=== PATIENT | male | born 1970 | race Caucasian/White ===

== ENCOUNTER 2016-10-13 07:32 | Emergency (ER) | payer BC ==
[2016-10-13 07:43] VITALS: BP 114/80
--- NOTE | 2016-10-13 08:11 | UC ---
Lower Extremity/Ankle HPI - HPI Summary HPI Summary: The patient comes in today for: 1. Pain and swelling of the left MP joint of the left foot. Onset: Last night. Palliative/provocative: Walking and pressure on the MP joint of left big toe. Quality: Ache Region: MP joint of the left big toe. Severity: 8/10 Time: Constant. Associated symptoms: He has had gout since about 13 years ago. He states that he has not recently been taking his allopurinol. And he had a big steak last night. * - History of Current Complaint Chief Complaint: UCLowerExtremity Stated Complaint: LEFT FOOT PAIN Time Seen by Provider: 10/13/16 08:03 Hx Obtained From: Patient - Allergies/Home Medications Allergies/Adverse Reactions: Allergies Allergy/AdvReac Type Severity Reaction Status Date / Time No Known Allergies Allergy Verified 10/13/16 07:43 PMH/Surg Hx/FS Hx/Imm Hx Previously Healthy: No - Gout Endocrine History Of: Denies: Diabetes, Thyroid Disease, Hyperthyroidism, Hypothyroidism, Dyslipidemia Cardiovascular History Of: Denies: Cardiac Disorders, Hypertension, Pacemaker/ICD, Myocardial Infarction , Congestive Heart Failure, Atrial Fibrillation, Deep Vein Thrombosis, Bleeding Disorders Respiratory History Of: Denies: COPD, Asthma, Bronchitis, Pneumonia, Pulmonary Embolism GI/ History Of: Reports: Renal Disease - He sees a regional property manager for "kidney disease" (high Cr), but doing well. Denies: Gastroesophageal Reflux, Ulcer, Gastrointestinal Bleed, Gall Bladder Disease, Kidney Stones, Diverticulitis, Urosepsis Neurological History Of: Denies: TIA, CVA, Dementia, Seizures, Migraine Psychological History Of: Denies: Anxiety, Depression, Bipolar Disorder, Schizophrenia, Post Traumatic Stress Disorder Cancer History Of: Denies: Lung Cancer, Colorectal Cancer, Breast Cancer, Prostate Cancer, Cervical Cancer Other History Of: Negative For: HIV, Hepatitis B, Hepatitis C, Anticoagulant Therapy - Surgical History Surgical History: Yes Surgery Procedure, Year, and Place: ACL surgery left knee, bone spur removed from back - Family History Known Family History: Positive: Hypertension, Renal Disease - daughter with kidney stones., Other - gout in father and brother Negative: Cardiac Disease - Social History Occupation: Employed Full-time Alcohol Use: Rare Substance Use Type: None Smoking Status (MU): Never Smoked Tobacco Type: Smokeless Tobacco Amount Used/How Often: 1 CAN q 3-4 days Length of Time of Smoking/Using Tobacco: 22 Years Have You Smoked in the Last Year: Yes When Did the Patient Quit Smoking/Using Tobacco: ~08/24/15 Review of Systems Constitutional: Negative Skin: Negative Eyes: Negative ENT: Negative Respiratory: Negative Cardiovascular: Negative Gastrointestinal: Negative Genitourinary: Negative All Other Systems Reviewed And Are Negative: Yes Physical Exam Triage Information Reviewed: Yes Appearance: Well-Appearing, No Pain Distress, Well-Nourished Vital Signs: Initial Vital Signs Temp 97.3 F 10/13/16 07:36 Pulse 78 10/13/16 07:36 Resp 18 10/13/16 07:36 BP 114/80 10/13/16 07:36 Vital Signs Reviewed: Yes Eyes: Positive: Conjunctiva Clear. Negative: Discharge ENT: Positive: Hearing grossly normal, Pharyngeal erythema. Negative: TM bulging, TM red, Tonsillar swelling, Tonsillar exudate Dental: Negative: Gross Decay/Caries @, Dental Fracture @ Neck: Positive: Supple, Nontender, No Lymphadenopathy. Negative: Nuchal Rigidity Respiratory: Positive: Lungs clear, No respiratory distress, No accessory muscle use. Negative: Rhonchi, Wheezing Cardiovascular: Positive: RRR, No Murmur Abdomen Description: Positive: Nontender, No Organomegaly, Soft. Negative: Distended, Guarding Musculoskeletal: Positive: Strength Intact, ROM Intact, Edema @ - There is mild edema of the MP joint of the first left big toe. The area is tender to touch. Neurological: Positive: Alert, Muscle Tone Normal Psychological: Negative: Age Appropriate Behavior, Consolable Skin: Negative: rashes, breakdown Lower Extremity Course/Dx - Course Course Of Treatment: Patient told of his treatment options. He requests what he had successfully as treatment the last time (80 mg Solumedrol IM and colchicine). He is requested narcotic medication to cover him until the gout medicine kicks in. - Differential Dx/Diagnosis Differential Diagnosis/HQI/PQRI: Gout, Sprain, Strain Provider Diagnoses: Gout. Discharge - Discharge Plan Condition: Stable Disposition: HOME Patient Education Materials: Gout (ED) Referrals: Kaden Ford [Primary Care Provider] - If Needed (Please see your primary care provider as needed. If you have any problems, be seen again at that time.)
[2016-10-13] MEDS ORDERED: methylPREDNISolone SOD 40 MG* 1 ML VIAL IM ONE (08:20)
[2016-10-13] MEDS ORDERED: methylPREDNISolone 125 MG* 2 ML VIAL IM ONE (08:23)
== END 2016-10-13 08:52 | disposition home or self-care (01) ==
LOC: UCCORT 07:32
DX: M10.072 Idiopathic gout, left ankle and foot (principal); N28.9 Disorder of kidney and ureter, unspecified; Z87.891 Personal history of nicotine dependence
CPT/HCPCS: 96372; 99212; G0463; J2930

== ENCOUNTER 2017-01-21 17:43 | Emergency (ER) | payer BC ==
[2017-01-21 18:00] VITALS: BP 117/76
--- NOTE | 2017-01-21 18:57 | RAD ---
Indication: Softball injury. 4 views of the right hand demonstrates a fracture of the fifth metacarpal head with slight volar angulation. The remainder of the metacarpals are unremarkable. IMPRESSION: Fracture of the fifth metacarpal head with volar angulation.
--- NOTE | 2017-01-21 19:34 | UC ---
Hand/Wrist HPI - HPI Summary HPI Summary: FOUR DAYS AGO RIGHT HAND WAS HIT BY SOFTBALL WHILE PLAYING IN A GAME. SINCE TIME OF INJURY HAS HAD SWELLING AND PAIN IN (5TH METACARPAL ASPECT OF) HAND. NO PREVIOUS INJURY. NO LOSS OF SENSATION. FULL ROM BUT PAIN WITH FLEXION OF FIFTH FINGER. - History Of Current Complaint Chief Complaint: UCUpperExtremity Stated Complaint: RIGHT HAND INJURY Time Seen by Provider: 01/21/17 17:58 Hx Obtained From: Patient Onset/Duration: Sudden Onset, Lasting Days, Still Present Severity Initially: Moderate Severity Currently: Moderate Character Of Pain: Dull, Aching Aggravating Factor(s): Movement, Flexion, Extension Alleviating: Nothing Associated Signs And Symptoms: Positive: Swelling. Negative: Bruising, Numbness /Tingling Related History: Dominant Hand Right - Allergies/Home Medications Allergies/Adverse Reactions: Allergies Allergy/AdvReac Type Severity Reaction Status Date / Time No Known Allergies Allergy Verified 01/21/17 18:00 PMH/Surg Hx/FS Hx/Imm Hx Previously Healthy: Yes Other History Of: Negative For: HIV, Hepatitis B, Hepatitis C, Anticoagulant Therapy - Surgical History Surgical History: Yes Surgery Procedure, Year, and Place: ACL surgery left knee, bone spur removed from back - Family History Known Family History: Positive: Hypertension, Renal Disease - daughter with kidney stones., Other - gout in father and brother Negative: Cardiac Disease - Social History Occupation: Employed Full-time Lives: With Family Alcohol Use: Occasionally Substance Use Type: None Smoking Status (MU): Current Some Day Smoker Type: Smokeless Tobacco Amount Used/How Often: 1 CAN q 3-4 days Length of Time of Smoking/Using Tobacco: 22 Years Have You Smoked in the Last Year: Yes When Did the Patient Quit Smoking/Using Tobacco: ~08/24/15 Review of Systems Constitutional: Negative Skin: Negative Eyes: Negative ENT: Negative Respiratory: Negative Cardiovascular: Negative Gastrointestinal: Negative Genitourinary: Negative Motor: Negative Neurovascular: Negative Musculoskeletal: Arthralgia, Edema, Myalgia Neurological: Negative Psychological: Negative All Other Systems Reviewed And Are Negative: Yes Physical Exam Triage Information Reviewed: Yes Appearance: Well-Appearing, No Pain Distress, Well-Nourished Vital Signs: Initial Vital Signs Temp 98.1 F 01/21/17 17:56 Pulse 87 01/21/17 17:56 Resp 15 01/21/17 17:56 BP 117/76 01/21/17 17:56 Pulse Ox 100 01/21/17 17:56 Vital Signs Reviewed: Yes Eye Exam: Normal ENT Exam: Normal ENT: Positive: Normal ENT inspection, TMs normal Dental Exam: Normal Neck exam: Normal Respiratory Exam: Normal Respiratory: Positive: Chest non-tender, Lungs clear, Normal breath sounds, No respiratory distress, No accessory muscle use Cardiovascular Exam: Normal Cardiovascular: Positive: RRR, No Murmur, Pulses Normal Abdominal Exam: Normal Musculoskeletal: Positive: Strength Intact, ROM Intact, Edema @ - RIGHT HAND Neurological Exam: Normal Psychological Exam: Normal Skin Exam: Normal Procedures - Splinting Hand-Made Type: ASHLEY WRAP KOBAN PROTECTIVE GAUZE Splint: BOXERS SPLINT Pre-Proc Neuro Vasc Exam: normal Post-Proc Neuro Vasc Exam: normal Hand/Wrist Course/Dx - Differential Dx/Diagnosis Differential Diagnosis/HQI/PQRI: Fracture, Sprain, Strain Provider Diagnoses: CLOSED FOUR DAY OLD BOXER FRACTURE OF RIGHT FIFTH METACARPAL WITH VOLAR ANGUALTION Discharge - Discharge Plan Condition: Stable Disposition: HOME Patient Education Materials: Boxer Fracture (ED) Referrals: Joe Wiley MD [Medical Doctor] - Kishore URIOSTEGUI,Kaden Talbot [Primary Care Provider] - Additional Instructions: PHYSICAL THERAPY REFERRAL: You have been prescribed physical therapy. Treatments may include stretching, exercise, application of heat or cold, and other modalities. After an injury, PT can reduce swelling and pain. In recovery, PT is used to restore mobility and strength. Your specific treatment goals are: ___x__ Reduction of Swelling (EGS, US, ice as needed) __x___ Pain Reduction (EGS, US, ice as needed) TENS Pack Fitting and Instruction Wound Hydrotherapy ___x__ Preservation of Mobility ____x_ Yarsani of Mobility ____x_ Strength Yarsani ___x__ Work or Sports Hardening This instruction sheet also serves as your PHYSICAL THERAPY REFERRAL! Please take it with you to the therapist, so he/she will be aware of your diagnosis and treatment plan. You may see the physical therapist of your choice for these treatments, but may wish to check with your insurance to be sure the provider you select is covered. It's important to see the doctor to whom you have been referred for follow up.
== END 2017-01-21 19:32 | disposition home or self-care (01) ==
LOC: UCCORT 17:43
DX: S62.306A Unspecified fracture of fifth metacarpal bone, right hand, initial encounter for closed fracture (principal); W21.07XA Struck by softball, initial encounter; Y93.64 Activity, baseball; Y92.320 Baseball field as the place of occurrence of the external cause; Z72.0 Tobacco use
CPT/HCPCS: 99211; G0463

== ENCOUNTER 2017-09-22 09:03 | Emergency (ER) | payer BC ==
[2017-09-22 11:33] VITALS: BP 123/87
--- NOTE | 2017-09-22 11:36 | UC ---
Lower Extremity/Ankle HPI - HPI Summary HPI Summary: 46 yo gentleman c/o progressive worse foot pain, redness and swelling. Reports that this is c/w his usual hx gout. Follows with benefits analyst, but no longer has pcp. No fever / chills. Ran out of rx allopurinol, colchicine. States that usually he needs a shot of steroids to turn the pain around. Reports that kidneys have been working well, drinking lots of water. - History of Current Complaint Chief Complaint: UCGeneralIllness Stated Complaint: RT FOOT COMP Hx Obtained From: Patient Pain Intensity: 8 - Allergies/Home Medications Allergies/Adverse Reactions: Allergies Allergy/AdvReac Type Severity Reaction Status Date / Time No Known Allergies Allergy Verified 09/22/17 11:28 Home Medications: Home Medications Ibuprofen TAB* [Advil TAB*] 600 mg PO Q6H PRN 09/22/17 [History Confirmed ] PMH/Surg Hx/FS Hx/Imm Hx Previously Healthy: Yes - see hpi Other History Of: Negative For: HIV, Hepatitis B, Hepatitis C, Anticoagulant Therapy - Surgical History Surgical History: Yes Surgery Procedure, Year, and Place: ACL surgery left knee, bone spur removed from back - Family History Known Family History: Positive: Hypertension, Renal Disease - daughter with kidney stones., Other - gout in father and brother Negative: Cardiac Disease - Social History Alcohol Use: Occasionally Substance Use Type: None Smoking Status (MU): Current Some Day Smoker Type: Smokeless Tobacco Amount Used/How Often: 1 CAN q 3-4 days Length of Time of Smoking/Using Tobacco: 22 Years Have You Smoked in the Last Year: Yes When Did the Patient Quit Smoking/Using Tobacco: ~08/24/15 Review of Systems Constitutional: Negative Skin: Other - see hpi Eyes: Negative ENT: Negative Respiratory: Negative Cardiovascular: Negative Gastrointestinal: Negative Genitourinary: Negative Motor: Other - see hpi Musculoskeletal: Arthralgia Neurological: Negative Psychological: Negative Is Patient Immunocompromised?: No All Other Systems Reviewed And Are Negative: Yes Physical Exam Triage Information Reviewed: Yes Appearance: Well-Appearing, Well-Nourished Vital Signs: Initial Vital Signs Temp 98.0 F 09/22/17 11:24 Pulse 68 09/22/17 11:24 Resp 18 09/22/17 11:24 BP 123/87 09/22/17 11:24 Pulse Ox 96 09/22/17 11:24 Eye Exam: Normal - grossly normal ENT Exam: Normal - grossly normal Neck exam: Normal - no c/o pain Respiratory Exam: Normal - no tachypnea, no dyspnea. RR normal. Cardiovascular Exam: Normal - HR normal. Non-diaphoretic. DP/Pt palpable. Abdominal Exam: Normal - no complaints Musculoskeletal Exam: Other - normal except R foot redness, swelling, pain at 1st MTP joint. + tender. CR < 2 sec x 5 digits. Distal sensation present. No prox swelling or pain. Neurological Exam: Normal - groslly nonfocal Psychological Exam: Normal - conversing easily and appropriately Skin Exam: Normal - no visible or reported rash. R foot 1st mtp redness as noted above, c/w gout. Lower Extremity Course/Dx - Course Course Of Treatment: Reviewed coa / tx plan with Mr. Novak. He has not had blood work nor seen pcp in a long time. Reports that they have been watching his kidneys. As such, blood work ordered today. F/u later this month with rheumotologist as scheduled. He will look for a PCP as well. Questions as posed answered to the best of my ability. - Differential Dx/Diagnosis Provider Diagnoses: Arthralgia, c/w acute gout. Discharge - Sign-Out/Discharge Documenting (check all that apply): Discharge/Admit/Transfer - Discharge Plan Condition: Stable Disposition: HOME Prescriptions: Allopurinol TAB* [Zyloprim 300 MG TAB*] 300 mg PO DAILY #30 tab Colchicine* [Colcrys*] 0.6 mg PO DAILY #12 tab Patient Education Materials: Gout (ED) [place] [facility] [place]] No Primary Care Phys,NOPCP [Primary Care Provider] - Additional Instructions: Blood work drawn today: basic metabolic panel "BMP," and Uric acid level. Please follow up with your benefits analyst as scheduled this month. Please follow up with a primary care physician, as soon as you are able. Within one month if possible. Please go to the Emergency Department for worse or new problems in the meantime. - Billing Disposition and Condition Condition: STABLE Disposition: HOME
[2017-09-22] MEDS ORDERED: methylPREDNISolone 125 MG* 2 ML VIAL IM ONE (11:53)
[2017-09-22 19:40] LABS: Uric Acid 9.2 mg/dL (4.4-7.6)
== END 2017-09-22 12:50 | disposition home or self-care (01) ==
LOC: UCCORT 09:03
DX: M25.571 Pain in right ankle and joints of right foot (principal); F17.220 Nicotine dependence, chewing tobacco, uncomplicated
CPT/HCPCS: 36415; 80048; 84550; 96372; 99212; G0463; J2930

== ENCOUNTER 2017-11-14 13:02 | Emergency (ER) | payer BC ==
[2017-11-14 13:23] VITALS: BP 116/78
--- NOTE | 2017-11-14 13:33 | UC ---
Lower Extremity/Ankle HPI - HPI Summary HPI Summary: 47 year old male with foot pain . Here w/ gout flare up in RIGHT big toe since yesterday. Takes allopurinol 300mg daily and ibuprofen prn. Had flare-up 3 months ago and tx w/ colchicine and steroid shot. he had beer a couple days ago and that may flared it up [ End ] - History of Current Complaint Chief Complaint: UCLowerExtremity Stated Complaint: RIGHT FOOT PAIN Time Seen by Provider: 11/14/17 13:29 Hx Obtained From: Patient Onset/Duration: Sudden Onset Severity Initially: Moderate Severity Currently: Severe Pain Intensity: 7 Aggravating Factor(s): Standing Alleviating Factor(s): Rest Able to Bear Weight: Yes - Allergies/Home Medications Allergies/Adverse Reactions: Allergies Allergy/AdvReac Type Severity Reaction Status Date / Time No Known Allergies Allergy Verified 11/14/17 13:16 Home Medications: Home Medications Allopurinol TAB* [Zyloprim 300 MG TAB*] 300 mg DAILY 11/14/17 [History Confirmed 11/14/17] PMH/Surg Hx/FS Hx/Imm Hx Previously Healthy: Yes Respiratory History: Other - gout Other Respiratory History: gout Other History Of: Negative For: HIV, Hepatitis B, Hepatitis C, Anticoagulant Therapy - Surgical History Surgical History: Yes Surgery Procedure, Year, and Place: ACL surgery left knee, bone spur removed from back - Family History Known Family History: Positive: Hypertension, Renal Disease - daughter with kidney stones., Other - gout in father and brother Negative: Cardiac Disease - Social History Occupation: Employed Full-time Alcohol Use: Occasionally Substance Use Type: None Smoking Status (MU): Former Smoker Type: Smokeless Tobacco Amount Used/How Often: 1 CAN q 3-4 days Length of Time of Smoking/Using Tobacco: 22 Years Have You Smoked in the Last Year: Yes When Did the Patient Quit Smoking/Using Tobacco: ~08/24/15 Review of Systems Musculoskeletal: Arthralgia Is Patient Immunocompromised?: No All Other Systems Reviewed And Are Negative: Yes Physical Exam Triage Information Reviewed: Yes Appearance: Well-Appearing, No Pain Distress, Well-Nourished Vital Signs: Initial Vital Signs Temp 97.3 F 11/14/17 13:17 Pulse 68 11/14/17 13:17 Resp 16 11/14/17 13:17 BP 116/78 11/14/17 13:17 Pulse Ox 100 11/14/17 13:17 Vital Signs Reviewed: Yes Eye Exam: Normal Respiratory Exam: Normal Cardiovascular Exam: Normal Musculoskeletal Exam: Normal Musculoskeletal: Positive: Strength Intact, ROM Limited @ - pain and redness with tenderness 1st MTP large toe. no discharge. warm to touch. no streaking . no induration Neurological Exam: Normal Psychological Exam: Normal Skin Exam: Normal Lower Extremity Course/Dx - Course Course Of Treatment: f/u with PCP and rheum and follow proper diet - Differential Dx/Diagnosis Differential Diagnosis/HQI/PQRI: Gout Provider Diagnoses: gout Discharge - Sign-Out/Discharge Documenting (check all that apply): Discharge/Admit/Transfer - Discharge Plan Condition: Good Disposition: HOME Prescriptions: Colchicine [Mitigare] 0.6 mg PO SEE INSTRUCTIONS #9 capsule Patient Education Materials: Gout (ED), Low Purine Diet (ED) Referrals: No Primary Care Phys,NOPCP [Primary Care Provider] - 2 Weeks - Billing Disposition and Condition Condition: GOOD Disposition: Home
[2017-11-14] MEDS ORDERED: methylPREDNISolone 125 MG* 2 ML VIAL IM ONE (13:39)
== END 2017-11-14 13:52 | disposition home or self-care (01) ==
LOC: UCCORT 13:02
DX: M10.9 Gout, unspecified (principal); Z87.891 Personal history of nicotine dependence
CPT/HCPCS: 96372; 99212; G0463; J2930

== ENCOUNTER 2017-12-21 13:27 | Emergency (ER) | payer BC ==
[2017-12-21 14:23] VITALS: BP 123/81
--- NOTE | 2017-12-21 14:30 | UC ---
Lower Extremity/Ankle HPI - HPI Summary HPI Summary: Pt c/o sudden onset of left toe swelling and tenderness. Pthas hx of gout X 15 years, takes allopurinol daily but admits to eatin g"junky diet over the weekend ". Pt woke to sudden onset of left great toe swelling, pain, warmtha nd difficulty with weight bearing. Pt states he has had "flares frequently" and request "shot of steroids and colchicine" Denies injury or trauma - History of Current Complaint Chief Complaint: UCLowerExtremity Stated Complaint: LFT FOOT PAIN Time Seen by Provider: 12/21/17 14:24 Hx Obtained From: Patient Onset/Duration: Sudden Onset, Lasting Hours, Still Present, Worse Since Severity Initially: Moderate Severity Currently: Moderate Pain Intensity: 8 Aggravating Factor(s): Standing, Ambulation Alleviating Factor(s): Nothing Able to Bear Weight: Yes - minimum - Risk Factors Gout Risk Factors: Age Over 40, Male DVT Risk Factors: Negative Septic Arthritis Risk Factor: Negative - Allergies/Home Medications Allergies/Adverse Reactions: Allergies Allergy/AdvReac Type Severity Reaction Status Date / Time No Known Allergies Allergy Verified 12/21/17 14:19 PMH/Surg Hx/FS Hx/Imm Hx Previously Healthy: Yes Other History Of: Negative For: HIV, Hepatitis B, Hepatitis C, Anticoagulant Therapy - Surgical History Surgical History: Yes Surgery Procedure, Year, and Place: ACL surgery left knee, bone spur removed from back - Family History Known Family History: Positive: Hypertension, Renal Disease - daughter with kidney stones., Other - gout in father and brother Negative: Cardiac Disease - Social History Occupation: Employed Full-time Lives: With Family Alcohol Use: Occasionally Substance Use Type: None Smoking Status (MU): Former Smoker Type: Smokeless Tobacco Amount Used/How Often: 1 CAN q 3-4 days Length of Time of Smoking/Using Tobacco: 22 Years Have You Smoked in the Last Year: Yes When Did the Patient Quit Smoking/Using Tobacco: ~08/24/15 Review of Systems Constitutional: Negative Skin: Negative Eyes: Negative ENT: Negative Respiratory: Negative Cardiovascular: Negative Gastrointestinal: Negative Genitourinary: Negative Motor: Decreased ROM - left great toe Neurovascular: Negative Musculoskeletal: Arthralgia, Decreased ROM - left great toe, Edema, Myalgia Neurological: Negative Psychological: Negative Is Patient Immunocompromised?: No All Other Systems Reviewed And Are Negative: Yes Physical Exam Triage Information Reviewed: Yes Appearance: Well-Appearing, Pain Distress Vital Signs: Initial Vital Signs Temp 97.5 F 12/21/17 14:19 Pulse 76 12/21/17 14:19 Resp 16 12/21/17 14:19 BP 123/81 12/21/17 14:19 Pulse Ox 100 12/21/17 14:19 Vital Signs Reviewed: Yes Eye Exam: Normal ENT: Positive: Normal ENT inspection Dental Exam: Normal Neck exam: Normal Respiratory Exam: Normal Cardiovascular Exam: Normal Musculoskeletal: Positive: Strength Limited @ - left great toe, ROM Limited @, Edema @ Neurological Exam: Normal Psychological Exam: Normal Skin Exam: Other - mild erythema left great toe Lower Extremity Course/Dx - Differential Dx/Diagnosis Differential Diagnosis/HQI/PQRI: Gout, Infection Provider Diagnoses: left great toe gout Discharge - Sign-Out/Discharge Documenting (check all that apply): Patient Departure - Discharge Plan Condition: Stable Disposition: HOME Prescriptions: Colchicine* [Colcrys*] 0.6 mg PO DAILY #3 tab Patient Education Materials: Low Purine Diet (ED), Gout (ED) Referrals: No Primary Care Phys,NOPCP [Primary Care Provider] - [facility] [place]] - If Needed Additional Instructions: Per institutional requirements, I have reviewed the chart, however, I was not consulted specifically or made aware of this patient by the above midlevel provider. I did not personally evaluate, interact with , or disposition this patie - Billing Disposition and Condition Condition: STABLE Disposition: Home
[2017-12-21] MEDS ORDERED: methylPREDNISolone 125 MG* 2 ML VIAL IM ONE (14:31)
== END 2017-12-21 15:00 | disposition home or self-care (01) ==
LOC: UCCORT 13:27
DX: M10.9 Gout, unspecified (principal); Z87.891 Personal history of nicotine dependence
CPT/HCPCS: 96372; 99212; G0463; J2930

== ENCOUNTER 2018-03-10 09:06 | Emergency (ER) | payer BC ==
[2018-03-10 10:18] VITALS: BP 128/77
[2018-03-10] MEDS ORDERED: predniSONE TAB* 20 MG PO ONE (10:48)
--- NOTE | 2018-03-10 10:55 | UC ---
Lower Extremity/Ankle HPI - HPI Summary HPI Summary: 47-year-old male with history of gout presents with 2 day history of pain to his right great toe with redness and swelling. States this is very similar to his previous gout flareups. Denies fever, chills, injury, numbness or tingling. - History of Current Complaint Chief Complaint: UCLowerExtremity Stated Complaint: RIGHT FOOT COMPLAINT Time Seen by Provider: 03/10/18 10:33 Hx Obtained From: Patient Onset/Duration: Gradual Onset, Lasting Days - 2 Severity Currently: Moderate Pain Intensity: 7 Aggravating Factor(s): Ambulation Alleviating Factor(s): Nothing Able to Bear Weight: Yes - Allergies/Home Medications Allergies/Adverse Reactions: Allergies Allergy/AdvReac Type Severity Reaction Status Date / Time No Known Allergies Allergy Verified 03/10/18 10:19 Home Medications: Home Medications Ibuprofen TAB* [Motrin TAB* 400 MG] 400 mg PO Q6H PRN 03/10/18 [History Confirmed 03/10/18] PMH/Surg Hx/FS Hx/Imm Hx - Additional Past Medical History Additional PMH: gout Previously Healthy: Yes Other History Of: Negative For: HIV, Hepatitis B, Hepatitis C, Anticoagulant Therapy - Surgical History Surgical History: Yes Surgery Procedure, Year, and Place: ACL surgery left knee, bone spur removed from back - Family History Known Family History: Positive: Hypertension, Renal Disease - daughter with kidney stones., Other - gout in father and brother Negative: Cardiac Disease - Social History Occupation: Employed Full-time Lives: With Family Alcohol Use: Rare Substance Use Type: None Smoking Status (MU): Never Smoked Tobacco Type: Smokeless Tobacco Amount Used/How Often: 1 CAN q 3-4 days Length of Time of Smoking/Using Tobacco: 22 Years Have You Smoked in the Last Year: Yes When Did the Patient Quit Smoking/Using Tobacco: ~08/24/15 Review of Systems Constitutional: Negative Skin: Other - Erythema right great toe Motor: Negative Neurovascular: Negative Musculoskeletal: Other: - See HPI Is Patient Immunocompromised?: No All Other Systems Reviewed And Are Negative: Yes Physical Exam Triage Information Reviewed: Yes Appearance: Well-Appearing, No Pain Distress, Well-Nourished Vital Signs: Initial Vital Signs Temp 97.4 F 03/10/18 10:14 Pulse 74 03/10/18 10:14 Resp 18 03/10/18 10:14 BP 128/77 03/10/18 10:14 Pulse Ox 98 03/10/18 10:14 Respiratory: Positive: Lungs clear, Normal breath sounds Cardiovascular: Positive: RRR, No Murmur Musculoskeletal: Positive: ROM Intact, Other: - Erythema and edema to the MTP of right great toe Neurological: Positive: Alert Skin: Positive: Other - See above Lower Extremity Course/Dx - Course Course Of Treatment: 47-year-old male with a history of gout presents with 2 day history of swelling to the MTP of the right great toe. His exam is consistent with a gout flare. He was given prednisone 60 mg in the clinic and prescribed a tapering dose of prednisone over the next 10 days. He is to follow -up with primary care provider if symptoms persist. - Differential Dx/Diagnosis Provider Diagnoses: Gout right great toe Discharge - Sign-Out/Discharge Documenting (check all that apply): Patient Departure All imaging exams completed and their final reports reviewed: No Studies - Discharge Plan Condition: Stable Disposition: HOME Prescriptions: predniSONE TAB* [Deltasone 10 MG TAB*] 10 mg PO DAILY #30 tab Patient Education Materials: Low Purine Diet (ED), Gout (ED) Referrals: No Primary Care Phys,NOPCP [Primary Care Provider] - Additional Instructions: You're given a dose of prednisone 60 mg in the clinic today for your gout. Starting tomorrow begin a tapering dose of the prednisone. He will take 4 tablets once daily for 3 days, then 3 tablets daily for 3 days, then 2 tablets daily for 3 days, then 1 tablet daily for 3 days, then stop. I have provided you with a I have provided she with information on a low purine diet which can help prevent flareups of gout. Be sure to review this information. Follow-up with your primary care provider if symptoms do not improve. - Billing Disposition and Condition Condition: STABLE Disposition: Home - Attestation Statements Provider Attestation: I was available for consult. This patient was seen by the SUDHAKAR. The patient was not presented to, seen by, or examined by me. -Fawad
== END 2018-03-10 11:09 | disposition home or self-care (01) ==
LOC: UCCORT 09:06
DX: M10.9 Gout, unspecified (principal); Z72.0 Tobacco use; Z79.52 Long term (current) use of systemic steroids
CPT/HCPCS: 99212; G0463; J7512

== ENCOUNTER 2018-09-28 17:12 | Emergency (ER) | payer BC ==
[2018-09-28 18:30] VITALS: BP 135/86
--- NOTE | 2018-09-28 18:43 | ED ---
Throat Pain/Nasal Congestion - HPI Summary HPI Summary: 47 yr old male with the complaint of frontal and maxillary sinus ache for about three weeks. he has had some sneezing, nasal congestion and cough as well. Cough worse at night. - History of Current Complaint Chief Complaint: UCGeneralIllness Time Seen by Provider: 09/28/18 18:31 - Allergies/Home Medications Allergies/Adverse Reactions: Allergies Allergy/AdvReac Type Severity Reaction Status Date / Time No Known Allergies Allergy Verified 09/28/18 18:30 PMH/Surg Hx/FS Hx/Imm Hx Endocrine/Hematology History: Denies: Hx Anticoagulant Therapy, Hx Diabetes, Hx Thyroid Disease Cardiovascular History: Denies: Hx Congestive Heart Failure, Hx Deep Vein Thrombosis, Hx Hypertension , Hx Myocardial Infarction, Hx Pacemaker/ICD Respiratory History: Denies: Hx Asthma, Hx Chronic Obstructive Pulmonary Disease (COPD), Hx Lung Cancer, Hx Pneumonia, Hx Pulmonary Embolism GI History: Denies: Hx Gall Bladder Disease, Hx Gastrointestinal Bleed, Hx Ulcer, Hx Urosepsis History: Reports: Hx Renal Disease - 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 Denies: Hx Kidney Stones Neurological History: Denies: Hx Dementia, Hx Migraine, Hx Seizures, Hx Transient Ischemic Attacks (TIA) Psychiatric History: Denies: Hx Anxiety, Hx Depression, Hx Schizophrenia, Hx Bipolar Disorder - Surgical History Surgery Procedure, Year, and Place: ACL surgery left knee, bone spur removed from back Infectious Disease History: No Infectious Disease History: Denies: Traveled Outside the [place] in Last 30 Days - Family History Known Family History: Positive: Hypertension, Renal Disease - daughter with kidney stones., Other - gout in father and brother Negative: Cardiac Disease - Social History Occupation: Employed Full-time Alcohol Use: Rare Substance Use Type: Reports: None Smoking Status (MU): Never Smoked Tobacco Type: Smokeless Tobacco Amount Used/How Often: 1 CAN q 3-4 days Length of Time of Smoking/Using Tobacco: 22 Years Have You Smoked in the Last Year: Yes Review of Systems Constitutional: Negative Positive: Nasal Discharge, Other - sinus pain Positive: Cough All Other Systems Reviewed And Are Negative: Yes Physical Exam Triage Information Reviewed: Yes Vital Signs On Initial Exam: Initial Vitals Temp Pulse Resp BP Pulse Ox 97.9 F 62 16 135/86 98 09/28/18 18:27 09/28/18 18:27 09/28/18 18:27 09/28/18 18:27 09/28/18 18:27 Vital Signs Reviewed: Yes Appearance: Positive: Well-Appearing, No Pain Distress Skin: Positive: Warm, Skin Color Reflects Adequate Perfusion Head/Face: Positive: Normal Head/Face Inspection Eyes: Positive: EOMI, PAVEL ENT: Positive: Pharyngeal erythema, Nasal congestion, TMs normal, Sinus tenderness Neck: Positive: Nontender Respiratory/Lung Sounds: Positive: Clear to Auscultation, Breath Sounds Present Cardiovascular: Positive: RRR. Negative: Murmur Abdomen Description: Negative: Distended Musculoskeletal: Positive: Strength/ROM Intact Neurological: Positive: Sensory/Motor Intact, Alert, Oriented to Person Place, Time, CN Intact II-III, Normal Gait, Speech Normal Psychiatric: Positive: Normal - Per Coma Scale Best Eye Response: 4 - Spontaneous Best Motor Response: 6 - Obeys Commands Best Verbal Response: 5 - Oriented Coma Scale Total: 15 Diagnostics - Vital Signs Vital Signs Temp Pulse Resp BP Pulse Ox 09/28/18 18:27 97.9 F 62 16 135/86 98 - Laboratory Lab Statement: Any lab studies that have been ordered have been reviewed, and results considered in the medical decision making process. EENT Course/Dx - Course Course Of Treatment: 47 yr old with sinusitis. Rx augmentin. - Diagnoses Provider Diagnoses: Sinusitis Discharge - Sign-Out/Discharge Documenting (check all that apply): Patient Departure All imaging exams completed and their final reports reviewed: No Studies - Discharge Plan Condition: Good Disposition: HOME Prescriptions: Amoxicillin/Clavulanate TAB* [Augmentin TAB 875*] 875 mg PO BID #20 tab Patient Education Materials: Sinusitis (ED) Referrals: No Primary Care Phys,NOPCP [Primary Care Provider] - [facility] [place] [facility] [Outside] - 2 Days - Billing Disposition and Condition Condition: GOOD Disposition: Home
== END 2018-09-28 18:49 | disposition home or self-care (01) ==
LOC: UCCORT 17:12
DX: J32.9 Chronic sinusitis, unspecified (principal); R05 Cough; N18.9 Chronic kidney disease, unspecified
CPT/HCPCS: 99212; G0463

== ENCOUNTER 2018-11-09 17:17 | Emergency (ER) | payer BC ==
[2018-11-09 17:47] VITALS: BP 124/88
--- NOTE | 2018-11-09 18:34 | UC ---
Lower Extremity/Ankle HPI - HPI Summary HPI Summary: has not been taking allopurinal regullary----has a flare of gout in right great toe---no trauma---has been having flares on/off for 15 years - History of Current Complaint Chief Complaint: UCLowerExtremity Stated Complaint: RIGHT FOOT CONCERN Time Seen by Provider: 11/09/18 18:29 Hx Obtained From: Patient Onset/Duration: Sudden Onset, Lasting Days, Still Present Pain Intensity: 7 Pain Scale Used: 0-10 Numeric Aggravating Factor(s): Standing, Ambulation Alleviating Factor(s): Nothing Able to Bear Weight: Yes - Allergies/Home Medications Allergies/Adverse Reactions: Allergies Allergy/AdvReac Type Severity Reaction Status Date / Time No Known Allergies Allergy Verified 11/09/18 17:44 PMH/Surg Hx/FS Hx/Imm Hx Previously Healthy: No - gout Other History Of: Negative For: HIV, Hepatitis B, Hepatitis C, Anticoagulant Therapy - Surgical History Surgical History: Yes Surgery Procedure, Year, and Place: ACL surgery left knee, bone spur removed from back - Family History Known Family History: Positive: Hypertension, Renal Disease - daughter with kidney stones., Other - gout in father and brother Negative: Cardiac Disease - Social History Occupation: Employed Full-time Lives: With Family Alcohol Use: Occasionally Substance Use Type: None Smoking Status (MU): Former Smoker Type: Smokeless Tobacco Amount Used/How Often: 1 CAN q 3-4 days Length of Time of Smoking/Using Tobacco: 22 Years Have You Smoked in the Last Year: Yes When Did the Patient Quit Smoking/Using Tobacco: ~08/24/15 Review of Systems All Other Systems Reviewed And Are Negative: Yes Constitutional: Positive: Negative Skin: Positive: Negative Eyes: Positive: Negative ENT: Positive: Negative Respiratory: Positive: Negative Cardiovascular: Positive: Negative Gastrointestinal: Positive: Negative Genitourinary: Positive: Negative Motor: Positive: Negative Neurovascular: Positive: Negative Musculoskeletal: Positive: Arthralgia - right great toe Neurological: Positive: Negative Psychological: Positive: Negative Is Patient Immunocompromised?: No Physical Exam Triage Information Reviewed: Yes Appearance: Well-Appearing, No Pain Distress, Well-Nourished Vital Signs: Initial Vital Signs Temp 97.2 F 11/09/18 17:44 Pulse 77 11/09/18 17:44 Resp 16 11/09/18 17:44 BP 124/88 11/09/18 17:44 Pulse Ox 98 11/09/18 17:44 Vital Signs Reviewed: Yes Eye Exam: Normal Eyes: Positive: Conjunctiva Clear ENT Exam: Normal ENT: Positive: Normal ENT inspection, Hearing grossly normal. Negative: Trismus , Muffled voice, Hoarse voice Dental Exam: Normal Neck exam: Normal Neck: Positive: Supple, Nontender Respiratory Exam: Normal Respiratory: Positive: Chest non-tender, No respiratory distress, No accessory muscle use Cardiovascular Exam: Normal Cardiovascular: Positive: RRR, Pulses Normal, Brisk Capillary Refill Musculoskeletal: Positive: Edema @ - right great mt Neurological Exam: Normal Neurological: Positive: Alert Psychological Exam: Normal Psychological: Positive: Normal Response To Family, Age Appropriate Behavior Skin Exam: Normal Lower Extremity Course/Dx - Course Course Of Treatment: medrol dose pack, colcrys, low purine diet information follow with pcp rpn - Differential Dx/Diagnosis Provider Diagnosis: Gouty arthritis of right great toe Discharge - Sign-Out/Discharge Documenting (check all that apply): Patient Departure All imaging exams completed and their final reports reviewed: No Studies - Discharge Plan Condition: Stable Disposition: HOME Prescriptions: Colchicine* [Colcrys*] 0.6 mg PO BID #10 tab methylPREDNISolone [Medrol] 4 mg PO .SEE GEORGE INSTRUCTION #1 [id number] Patient Education Materials: Low Purine Diet (ED), Gout (ED) Referrals: DAISY Sauer [Medical Doctor] - If Needed - Billing Disposition and Condition Condition: STABLE Disposition: Home
== END 2018-11-09 18:43 | disposition home or self-care (01) ==
LOC: UCCORT 17:17
DX: M10.9 Gout, unspecified (principal); Z87.891 Personal history of nicotine dependence
CPT/HCPCS: 99212; G0463

== ENCOUNTER 2019-05-01 08:29 | Emergency (ER) | payer BC ==
[2019-05-01 08:37] VITALS: BP 112/77
--- NOTE | 2019-05-01 08:49 | UC ---
Lower Extremity/Ankle HPI - HPI Summary HPI Summary: Pt presents with c/o sudden onset of "gout flare up" in right great toe this morning. Pt has hx of gout and typically takes colchicine for acute flares but does not have any colchicine. - History of Current Complaint Chief Complaint: UCGeneralIllness Stated Complaint: RIGHT FOOT Time Seen by Provider: 05/01/19 08:36 Hx Obtained From: Patient Onset/Duration: Sudden Onset, Lasting Days, Still Present Severity Initially: Moderate Severity Currently: Moderate Pain Intensity: 7 Aggravating Factor(s): Standing, Ambulation Alleviating Factor(s): Rest, Elevation Able to Bear Weight: Yes - painful - Risk Factors Gout Risk Factors: Age Over 40, Male DVT Risk Factors: Negative Septic Arthritis Risk Factor: Negative - Allergies/Home Medications Allergies/Adverse Reactions: Allergies Allergy/AdvReac Type Severity Reaction Status Date / Time No Known Allergies Allergy Verified 05/01/19 08:37 PMH/Surg Hx/FS Hx/Imm Hx Previously Healthy: Yes Other History Of: Negative For: HIV, Hepatitis B, Hepatitis C, Anticoagulant Therapy - Surgical History Surgical History: Yes Surgery Procedure, Year, and Place: ACL surgery left knee, bone spur removed from back - Family History Known Family History: Positive: Hypertension, Renal Disease - daughter with kidney stones., Other - gout in father and brother Negative: Cardiac Disease - Social History Occupation: Employed Full-time Lives: With Family Alcohol Use: Occasionally Substance Use Type: None Smoking Status (MU): Former Smoker Type: Smokeless Tobacco Amount Used/How Often: 1 CAN q 3-4 days Length of Time of Smoking/Using Tobacco: 22 Years Have You Smoked in the Last Year: Yes When Did the Patient Quit Smoking/Using Tobacco: ~08/24/15 Review of Systems All Other Systems Reviewed And Are Negative: Yes Constitutional: Positive: Negative Skin: Positive: Other - erythema right medial great toe Eyes: Positive: Negative ENT: Positive: Negative Respiratory: Positive: Negative Cardiovascular: Positive: Negative Gastrointestinal: Positive: Negative Genitourinary: Positive: Negative Motor: Positive: Decreased ROM - right great toe Neurovascular: Positive: Negative Musculoskeletal: Positive: Arthralgia, Decreased ROM, Edema, Myalgia Neurological: Positive: Negative Psychological: Positive: Negative Is Patient Immunocompromised?: No Physical Exam Triage Information Reviewed: Yes Appearance: Well-Appearing Vital Signs: Initial Vital Signs Temp 97.6 F 05/01/19 08:34 Pulse 76 05/01/19 08:34 Resp 18 05/01/19 08:34 BP 112/77 05/01/19 08:34 Pulse Ox 98 05/01/19 08:34 Vital Signs Reviewed: Yes Eye Exam: Normal ENT Exam: Normal ENT: Positive: Hearing grossly normal Dental Exam: Normal Neck exam: Normal Respiratory: Positive: No respiratory distress Musculoskeletal: Positive: Edema @ - right great toe Neurological Exam: Normal Psychological Exam: Normal Skin Exam: Other - mild erythema distal great toe Lower Extremity Course/Dx - Differential Dx/Diagnosis Differential Diagnosis/HQI/PQRI: Cellulitis, Gout Provider Diagnosis: Gout attack Discharge ED - Sign-Out/Discharge Documenting (check all that apply): Patient Departure All imaging exams completed and their final reports reviewed: No Studies - Discharge Plan Condition: Stable Disposition: HOME Prescriptions: Colchicine* [Colcrys*] 0.6 mg PO BID #30 tab predniSONE TAB* [Deltasone 10 MG TAB*] 30 mg PO DAILY #12 tab Patient Education Materials: Low Purine Diet (ED), Gout (ED) Referrals: [facility] [place] [facility] [Outside] - If Needed No Primary Care Phys,NOPCP [Primary Care Provider] - - Billing Disposition and Condition Condition: STABLE Disposition: Home
== END 2019-05-01 08:56 | disposition home or self-care (01) ==
LOC: UCCORT 08:29
DX: M10.9 Gout, unspecified (principal); Z87.891 Personal history of nicotine dependence
CPT/HCPCS: 99212; G0463